=== PATIENT | female | born 1960 | race Caucasian/White ===

== ENCOUNTER → 2022-03-12 10:28 | Outpatient (BNVA) | payer MEDICARE, MEDICAID, SELFPAY | PROVIDERS: Visit Provider Psychiatry & Neurology Neurology | DX: R62.7 Adult failure to thrive (principal); F10.20 Alcohol dependence, uncomplicated; H53.8 Other visual disturbances; R41.0 Disorientation, unspecified; G89.29 Other chronic pain; M54.9 Dorsalgia, unspecified; R63.6 Underweight; Z68.1 Body mass index [BMI] 19.9 or less, adult | CPT/HCPCS: 99202 ==